=== PATIENT | male | born 1955 | race Caucasian/White ===

== ENCOUNTER 2016-07-05 17:55 | Emergency (ER) | payer MEDICARE, MEDICAID ==
[2016-07-05 18:24] VITALS: BP 103/64
--- NOTE | 2016-07-05 20:26 | ERNOTE ---
Time Seen by Provider: 07/05/16 20:11 Stated Complaint: CONGESTION, COUGH Presenting Symptoms:: cough, runny nose Source: patient, family Exam Limitations: no limitations Immunizations: IMMUNIZATION HX Immunizations Up to Date No Allergies/Adverse Reactions: Allergies Iodinated Contrast Media - IV Dye Allergy (Verified 07/05/16 18:23) Penicillins Allergy (Verified 07/05/16 18:23) Home Medications: HOME MEDICATIONS Aspirin 325 mg PO DAILY 07/24/13 [Last Taken Unknown] Atorvastatin Calcium 40 mg PO DAILY 07/24/13 [Last Taken Unknown] Clopidogrel 75 mg PO DAILY 07/24/13 [Last Taken Unknown] Acetaminophen [Tylenol] 1,000 mg PO BID 07/05/16 [Last Taken Unknown] Azithromycin [Zithromax] 250 mg PO DAILY #4 tablet 07/05/16 [Last Taken Unknown] Cephalexin 500 mg PO QID 07/05/16 [Last Taken Unknown] Levothyroxine Sodium [Synthroid] 25 mcg PO DAILY 07/05/16 [Last Taken Unknown] Lisinopril/Hydrochlorothiazide [Lisinopril-Hctz 20-12.5 mg Tab] 1 each PO DAILY 07/05/16 [Last Taken Unknown] Methylprednisolone [Medrol Dosepak] 4 mg PO DAILY #21 tab.ds.pk 07/05/16 [Last Taken Unknown] Neomycin/Polymyxin B Sulf/Hc [Ewmsyugv-Jrykpxbbx-Xn Ear Soln] 10 ml OT TID 07/05 [Last Taken Unknown] - History of Present Ilness Narrative: Pt states that he has been coughing for 3-4 days, getting worse Timing: getting worse Severity: moderate Frequency/Possible Cause: Reports: occasional episodes Modifying Factors - Worsens: Reports: coughing Associated Symptoms: Reports: wheezing Review of Systems - Review of Systems Constitutional: Present: recent illness. Absent: fever EYE: Present: no symptoms reported ENT: Present: other - lump in the anterior left neck Respiratory: Present: shortness of breath, cough Cardiology: Absent: chest pain Gastrointestinal/Abdominal: Absent: nausea, vomiting Genitourinary: Present: no symptoms reported Musculoskeletal: Present: no symptoms reported Skin: Present: no symptoms reported Neurological: Present: no symptoms reported Endocrine: Present: no symptoms reported Hematologic/Lymphatic: Present: no symptoms reported Psych: Present: no symptoms reported - Patient's Past Medical History Patient History - Medical: No pertinent hx Patient History - Cancer: Esophageal, Radiation Therapy, Other Patient History - Surgical Procedures: Other - Social History Living Situations: home Physical Exam - Physical Exam General Appearance: Present: wd/wn, alert, no apparent distress Eye Exam: Normal inspection: bilateral, PERRL: bilateral Ears, Nose, Throat: Present: nasal congestion, sinus pain/drainage, other - PND Neck: Present: nontender, supple, lymphadenopathy (L) - anterior left, single nodule, non-mobile approx 5 mm in diameter Respiratory: Present: rales - throughout Cardiovascular/Chest: Present: regular rate, rhythm Back Exam: Present: normal inspection, normal range of motion Extremity Exam: Present: normal inspection, non-tender, no edema Neurological Exam: Present: alert, oriented, normal mood/affect, no motor/ sensory deficits Skin Exam: Present: normal color, warm/dry ED Progress - Results and Orders Patient's Lab Results:: I have reviewed the patient's lab results. Results and Orders: Laboratory Tests 07/05/16 20:53 WBC 4.1 Hgb 14.0 Hct 41.6 L Plt Count 233 - Vital Signs Vital Signs: Vital Signs 07/05/16 18:18 Temperature 36.3 C L Pulse Rate 99 Respiratory 12 Rate Blood Pressure 103/64 O2 Sat by Pulse 97 Oximetry - X-Ray X-Ray #1 X-Ray: chest Interpretation: Reviewed by me X-ray Comments: right apical post-surgical changes, left apical nodule, seen previously. No acute changes - Progress/Reassessment Chief Complaint: Upper Respiratory Symptoms Departure - Departure Clinical Impression: Acute exacerbation of chronic obstructive bronchitis Disposition: Home Follow Up Needed Condition: Good Instructions: Chronic Obstructive Pulmonary Disease, [id number] Additional Instructions: Stop the current antibiotic, start new antibiotic and steroid pack. See your regular physician in 5-7 days Prescriptions: Azithromycin [Zithromax] 250 mg PO DAILY #4 tablet Methylprednisolone [Medrol Dosepak] 4 mg PO DAILY #21 tab.ds.pk
[2016-07-05 20:54] LABS: Hematocrit 41.6 % (42.0-52.0); Mean Cell Volume 90.8 fl (78-100); Mean Corpuscular Hemoglobin 30.6 pg (27-31); Mean Corpuscular Hgb Conc 33.7 g/dl (32-36); Mean Platelet Volume 9.6 fl (6.0-9.5); Neutrophil # 2.7 K/mm3 (1.3-6.0); Neutrophil % 66.7 % (42-75.0); Platelet Count 233 K/mm3 (150-450); Red Blood Count 4.58 M/mm3 (4.7-6.0); White Blood Count 4.1 K/mm3 (4.0-10.5)
[2016-07-05] MEDS ORDERED: AZITHROMYCIN 250 MG TABLET PO ONE (21:45)
[2016-07-05] MEDS ORDERED: AZITHROMYCIN 250 MG TABLET ONE (21:53)
== END 2016-07-05 22:00 | disposition home or self-care (01) ==
LOC: ER 17:55
DX: J44.1 Chronic obstructive pulmonary disease with (acute) exacerbation (principal); Z85.01 Personal history of malignant neoplasm of esophagus

== ENCOUNTER 2016-11-08 10:06 | Emergency (ER) | payer MEDICARE, MEDICAID ==
--- NOTE | 2016-11-08 10:22 | ERNOTE ---
Upper Extremity HPI - Narrative Date of Service: 11/08/16 - General Extremities Pain Location: elbow: right - fluid collection Time Seen by Provider: 11/08/16 10:12 Source: patient Exam Limitations: no limitations - Immun/Allergies/Home Medications Immunizations: IMMUNIZATION HX Immunizations Up to Date No History of Influenza Vaccine No Hx Pneumococcal Vaccination No Allergies/Adverse Reactions: Allergies Allergy/AdvReac Type Severity Reaction Status Date / Time Iodinated Contrast Media - Allergy Verified 11/08/16 10:16 Oral and [Iodinated Contrast Media - IV Dye] Penicillins Allergy Verified 11/08/16 10:16 Home Medications: HOME MEDICATIONS Atorvastatin Calcium [Lipitor] 40 mg PO HS 11/08/16 [Last Taken Unknown] Clopidogrel Bisulfate [Plavix] 75 mg PO DAILY 11/08/16 [Last Taken Unknown] Levothyroxine Sodium [Levoxyl] 25 mcg PO DAILY 11/08/16 [Last Taken Unknown] Lisinopril/Hydrochlorothiazide [Lisinopril-Hctz 20-12.5 mg Tab] 1 each PO DAILY 11/08/16 [Last Taken Unknown] - History of Present Illness Narrative: 61-year-old male presents to the emergency room for right elbow swelling. Patient states this is a 7 on 2 other occasions and he has seen Dr. boudreaux has strained this on [address] Boudreaux states that he did not want to reaspitate the elbow at this time. he would like him to see a orthopedist specialist. Patient came here to see if we would drain it and then he will go see the specialist later on in [place]. Date (Duration): 11/08/16 Occurred: last week Location of Incident: home Method of Injury: Reports: no apparent injury Loss of Consciousness: Reports: no loss of consciousness Associated Symptoms: Denies: tingling, weakness, numbness distally, loss of feeling, loss of power (rt arm) Other Injuries: Reports: none Prior Treament: Reports: treated by physician, similar symptoms before Review of Systems - Review of Systems Constitutional: Present: no symptoms reported EYE: Present: no symptoms reported ENT: Present: no symptoms reported Respiratory: Present: no symptoms reported Cardiology: Present: no symptoms reported Gastrointestinal/Abdominal: Present: no symptoms reported Genitourinary: Present: no symptoms reported Musculoskeletal: Present: See HPI, joint swelling Skin: Present: See HPI Neurological: Present: no symptoms reported Endocrine: Present: no symptoms reported Hematologic/Lymphatic: Present: no symptoms reported Psych: Present: no symptoms reported All Other Systems: All systems neg except as marked - Patient's Past Medical History Patient History - Medical: Hypothyroidism Patient History - Cardiac/Respiratory: COPD, CVA/Stroke, Hypertension, Hyperlipidemia Patient History - Cancer: Esophageal, Chemotherapy history, Radiation Therapy, Other Patient History - Surgical Procedures: Other Patient History - Other: None - Social History Living Situations: home Smoking Status: Former smoker Have you smoked in the past 12 months: No - Immunizations Immunizations Up to Date: No Hx Pneumococcal Vaccination: No History of Influenza Vaccine: No Physical Exam - Physical Exam Narrative: patient has a golfball size soft fluid filled area to his right elbow. area is not warm or red. No pain with manipulation to mass or ROM to elbow. General Appearance: Present: wd/wn, alert, no apparent distress Eye Exam: Normal inspection: bilateral Ears, Nose, Throat: Present: normal ENT inspection Neck: Present: normal inspection, nontender, full range of motion Respiratory: Present: no respiratory distress, normal breath sounds, no accessory muscle use, lungs clear Cardiovascular/Chest: Present: regular rate, rhythm, normal peripheral pulses Peripheral Pulses: N=norm/S=strong/W=weak/B=bound/A=absent: Dorsalis-pedis (R): Normal, Dorsalis-pedis (L): Normal Gastrointestinal/Abdominal: Present: normal bowel sounds, nontender, soft Back Exam: Present: normal inspection, normal range of motion, no vertebral tenderness Extremity Exam: Present: non-tender, normal range of motion Neurological Exam: Present: alert, oriented, normal mood/affect, no motor/ sensory deficits Skin Exam: Present: normal color, warm/dry Lymphatic Exam: Present: no adenopathy ED Progress - Vital Signs Patient's Vital Signs:: I have reviewed the patient's vital signs. Vital Signs: Vital Signs 11/08/16 10:12 Temperature 37.4 C Pulse Rate 87 Respiratory 14 Rate Blood Pressure 176/76 O2 Sat by Pulse 98 Oximetry patient states he has white coat syndrome and checks his BP regularly at home. states it is 130's over 70's. - Progress/Reassessment Chief Complaint: Upper Extremity Injury/Problem Progress:: Unchanged Plan - Plan Plan: patient has F/U apt with [facility] office November 13 2 pm. Departure Clinical Impression: Elbow effusion Qualifiers: Laterality: right Qualified Code(s): M25.421 - Effusion, right elbow - Departure Disposition: Home Follow Up Needed Condition: Stable Additional Instructions: [facility]. Continue any previous medications as directed. Return to the emergency room if side becomes red warm or more swollen. Referrals: Alex Boudreaux DO [Primary Care Provider] -
--- OUTSIDE RECORDS SUMMARY | 2016-11-08 10:27 | XMS REPORT | Continuity of Care Document ---
:1955 Author Organization [facility] ([facility]) Address [address] [place] [address] Phone [phone] Care Team Providers Name Role Phone Alex Cordon Primary Care Provider [phone] Source Comments This disclosure is being made pursuant to the Care Everywhere program, applicable federal and state laws, and may not contain all informaitonavailable regarding this patient.[facility] ([facility]) Active Allergies and Adverse Reactions Allergen Noted Date Severity Reactions Comments Iodinated Contrast Media 10/14/2013 Urticaria (Hives) - Oral And Iv Dye Iodine 07/14/2013 Urticaria (Hives) Penicillin G Angioedema Swelling of throat and eyes Current Medications Prescription Sig. Disp. Refills Start Date End Date Status aspirin 325 mg EC Take 1 Tab by mouth 60 Tab 11 07/19/2013 Active tablet daily. Indications: CEREBRAL THROMBOEMBOLISM PREVENTION ALPRAZolam 0.5 mg Take 0.5 mg by mouth Active tablet as needed. lisinopril-hydrochlor Take 1 tablet by Active othiazide 20-12.5 mg mouth daily . per tablet levothyroxine 25 mcg Take 1.5 tablets 45 tablet 12 08/27/2015 Active tablet (37.5 mcg total) by mouth every morning before breakfast. acetaminophen 500 mg Take 1,000 mg by Active tablet mouth 2 times daily. diphenhydrAMINE 50 mg Take 1 capsule (50 1 capsule 0 03/20/2016 Active capsule mg total) by mouth once. Take 1 hour prior to the procedure predniSONE 50 mg Take 50mg (1 tab) by 3 tablet 0 03/20/2016 Active tablet mouth 13 hours, 7 hours and 1 hour prior to the procedure. traMADol 50 mg tablet Take 50 mg by mouth 07/25/2016 Active 3 times daily as needed. clopidogrel (PLAVIX) Take 1 tablet (75 mg 30 tablet 11 09/15/2016 Active 75 mg tablet total) by mouth daily. atorvastatin 40 mg Take 1 tablet (40 mg 30 tablet 11 09/15/2016 Active tablet total) by mouth daily. Active Problems Problem Noted Date Carotid stenosis, bilateral 10/19/2016 Xerostomia 03/17/2015 Dysphagia 03/17/2015 Sialadenitis 03/17/2015 Hypothyroidism due to acquired atrophy of thyroid 03/17/2015 History of head and neck radiation 11/11/2014 History of antineoplastic chemotherapy 11/11/2014 Nasopharyngeal carcinoma 11/04/2014 Ocular ischemic syndrome 10/14/2013 Internal carotid artery occlusion 07/18/2013 Transient visual loss 07/18/2013 Vision loss of left eye 07/17/2013 Low BMI 07/16/2013 Weight loss 07/16/2013 Lung nodule 07/16/2013 Overview: PET enhancing, detected in 2011 at [facility] in [place]. Wedge resection vs endoscopic thoracotomy was recommended but patient was lost to follow up. 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 07/15/2013 Overview: left CCA occlusion w/ retrograde left ICA flow, 50% right ICA History of nasopharyngeal cancer 07/15/2013 Overview: 5 years ago treated with chemo/radiation Stroke 07/14/2013 Most Recent Encounters Date Type Specialty Providers Description 10/19/2016 Office Visit Neurology Evangelina Hernandez Dx: Stroke (Primary MD Dx) 10/16/2016 Office Visit Neurology Evangelina Hernandez, Chief Comp: Patient MD Reported Reason For Visit 09/19/2016 Telephone Otolaryngology Rosario Abad, Chief Comp: Discuss PA-C Test Results 09/18/2016 [facility], Chief Comp: Patient Encounter MD Timbo Reported Reason For Visit 09/18/2016 [facility] Radiology Sushant Lantigua Dx: Nasopharyngeal Encounter Vern Jurado MD carcinoma 09/18/2016 [facility] Radiology Ibrahima Lantigua MD Chief Comp: Patient Encounter Reported Reason For Visit 09/18/2016 Office Visit [facility] Constantin Dx: PVD (peripheral MD Timbo vascular disease) (Primary Dx) 09/15/2016 Office Visit Otolaryngology Alvaro Cazares Dx: Nasopharyngeal MD carcinoma (Primary Rosario Abad, Dx) PA-C 09/15/2016 Refill Neurology Evangelina Hernandez, Dx: Chronic arterial MD ischemic stroke (Primary Dx) 09/01/2016 Telephone Otolaryngology Aure Liriano Chief Comp: LOREN Espinal-sachin-nurse 09/01/2016 Telephone Otolaryngology Aure Liriano RN Social History Tobacco Use Types Packs/Day Years Used Date Former Smoker Cigarettes 2 38 Quit: 07/13/2013 Smokeless Tobacco: Never Used Tobacco Cessation:Counseling Given: Yes Comments: Alcohol Use Drinks/Week oz/Week Comments No Last Filed Vital Signs Vital Sign Reading Time Taken Blood Pressure 160/76 10/19/2016 9:46 AM CDT Pulse 74 10/19/2016 9:46 AM CDT Temperature 35.9 C (96.6 F) 09/18/2016 1:05 PM CDT Respiratory Rate 16 07/17/2013 8:00 AM TRANSFER KNITTER Height 1.791 m (5' 10.5") 10/19/2016 9:46 AM CDT Weight 62.3 kg (137 lb 5.6 oz) 10/19/2016 9:46 AM CDT Body Mass Index 19.42 10/19/2016 9:46 AM CDT Oxygen Saturation 100% 10/19/2016 9:46 AM CDT Plan of Care Date Type Specialty Providers Description 09/14/2017 Appointment Otolaryngology Ben Dumont MD [address] [place] [address] [phone] (Fax) Chief Comp: Patient Alvaro Cazares MD [address] [place] [address] [phone] (Fax) Reported Reason For Rosario Abad PA-C [address] [place] [address] [phone] (Fax) Visit 09/17/2017 Appointment Radiology Chief Comp: Patient Reported Reason For Visit 09/17/2017 Appointment Heart and Vascular Timbo Killian, Chief Comp: Patient Reported Reason For [address] [place] [address] [phone] (Fax) 09/17/2017 Appointment Srg Vascular Timbo Killian, Chief Comp: Patient Reported Reason For [address] [place] [address] [phone] (Fax) Health Maintenance Due Date Last Done Comments HCV Screening 1955 Hepatitis B Vaccine (1 of 3 - Primary Series) 1955 Tdap Vaccine 1966 Td Vaccine 1973 Pneumococcal Vaccine (1 of 3 - PCV13) 1974 Colonoscopy 06/22/2005 Prostate Cancer Screening 2005 Zoster Vaccine 2015 Influenza Vaccine: Seasonal (Season Ended) 2017 Lipid Disorder Screening 07/15/2018 07/15/2013 Procedures from Last 3 Months Procedure Name Priority Date/Time Associated Diagnosis Comments [place] REMOVE IMPACTED Routine 09/15/2016 1:04 Left ear impacted Results for this EAR WAX PM CDT cerumen procedure are in the results section. LARGSC FLX FIBOPT Routine 09/15/2016 1:04 Nasopharyngeal Results for this DX PM CDT carcinoma procedure are in the results section. Results from Last [address] LARYNX/SOFT TISSUE NECK W CONTRAST ([id number]) (09/18/2016 12:24 PM) Impressions Impression: 1. No evidence of local recurrence in pharyngeal area. 2. No cervical lymphadenopathy. 3. Stable chronic occlusion of proximal left common carotid artery with distal reconstitution by left external carotid artery. 4. Stable marked stenosis of left distal common carotid artery and left ICA. 5. Patent stent in right common carotid artery and right internal carotid artery, with stable mild in stent stenosis in distal right ICA. Narrative Procedure: CT ANGIO NECK W/WO CONTRAST ([id number]), CT LARYNX/SOFT TISSUE NECK W CONTRAST ([id number]) Indication: Evaluate right carotid stenosis s/p stent placement. 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 Exam: Axial CT angiogram of the neck after the uneventful administration of 49 mL Isovue-370 IV contrast. Sagittal and coronal reformations were also provided for review. 3D images were created on an independent workstation to better evaluate potential vascular abnormalities. Comparison: 09/20/2015. Findings: Neck: There is asymmetry of parotid glands with left parotid gland appears to be moderately small in size. There are multiple subcentimeter lymph nodes bilaterally which do not reach significance by size criteria. The nasopharyngeal, oropharyngeal, hypopharyngeal, and laryngeal structures are symmetric and within normal limits. Normal paranasal sinuses. The salivary glands are normal. Thyroid gland is homogenous without nodules. Cervical vascular structures patent. Postsurgical changes of right upper lobe wedge resection. No destructive bony lesions. Mild multilevel degenerative changes more so at C6-C7 level. Bilateral emphysematous changes in both upper lobes. CTA neck: Stent in right common carotid artery and right internal carotid artery. There is mild stenosis in distal common carotid artery, stable since prior. There is stable occlusion of left common carotid artery just distal to its origin up to carotid artery bulb. It is likely being constituted distally by left ECA. Stable marked stenosis of left common carotid artery distal to the bulb. It continues to be markedly stenotic in the left internal carotid artery distally up to cavernous segment. The vertebral arteries originate from the subclavian arteries without significant ostial stenosis. Left vertebral artery is dominant. There is normal course and caliber of the cervical vertebral arteries. Procedure Note Antoni, Incoming Imaging Results - SunSep 18, 2016 3:50 PM CDT Procedure: CT ANGIO NECK W/WO CONTRAST ([id number]), CT LARYNX/SOFT TISSUE NECK W CONTRAST ([id number]) Indication: Evaluate right carotid stenosis s/p stent placement. 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 Exam: Axial CT angiogram of the neck after the uneventful administration of 49 mL Isovue-370 IV contrast. Sagittal and coronal reformations were also provided for review. 3D images were created on an independent workstation to better evaluate potential vascular abnormalities. Comparison: 09/20/2015. Findings: Neck: There is asymmetry of parotid glands with left parotid gland appears to be moderately small in size. There are multiple subcentimeter lymph nodes bilaterally which do not reach significance by size criteria. The nasopharyngeal, oropharyngeal, hypopharyngeal, and laryngeal structures are symmetric and within normal limits. Normal paranasal sinuses. The salivary glands are normal. Thyroid gland is homogenous without nodules. Cervical vascular structures patent. Postsurgical changes of right upper lobe wedge resection. No destructive bony lesions. Mild multilevel degenerative changes more so at C6-C7 level. Bilateral emphysematous changes in both upper lobes. CTA neck: Stent in right common carotid artery and right internal carotid artery. There is mild stenosis in distal common carotid artery, stable since prior. There is stable occlusion of left common carotid artery just distal to its origin up to carotid artery bulb. It is likely being constituted distally by left ECA. Stable marked stenosis of left common carotid artery distal to the bulb. It continues to be markedly stenotic in the left internal carotid artery distally up to cavernous segment. The vertebral arteries originate from the subclavian arteries without significant ostial stenosis. Left vertebral artery is dominant. There is normal course and caliber of the cervical vertebral arteries. IMPRESSION Impression: 1. No evidence of local recurrence in pharyngeal area. 2. No cervical lymphadenopathy. 3. Stable chronic occlusion of proximal left common carotid artery with distal reconstitution by left external carotid artery. 4. Stable marked stenosis of left distal common carotid artery and left ICA. 5. Patent stent in right common carotid artery and right internal carotid artery, with stable mild in stent stenosis in distal right ICA. CT ANGIO NECK W/WO CONTRAST ([id number]) (09/18/2016 12:23 PM) Impressions Impression: 1. No evidence of local recurrence in pharyngeal area. 2. No cervical lymphadenopathy. 3. Stable chronic occlusion of proximal left common carotid artery with distal reconstitution by left external carotid artery. 4. Stable marked stenosis of left distal common carotid artery and left ICA. 5. Patent stent in right common carotid artery and right internal carotid artery, with stable mild in stent stenosis in distal right ICA. Narrative Procedure: CT ANGIO NECK W/WO CONTRAST ([id number]), CT LARYNX/SOFT TISSUE NECK W CONTRAST ([id number]) Indication: Evaluate right carotid stenosis s/p stent placement. 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 Exam: Axial CT angiogram of the neck after the uneventful administration of 49 mL Isovue-370 IV contrast. Sagittal and coronal reformations were also provided for review. 3D images were created on an independent workstation to better evaluate potential vascular abnormalities. Comparison: 09/20/2015. Findings: Neck: There is asymmetry of parotid glands with left parotid gland appears to be moderately small in size. There are multiple subcentimeter lymph nodes bilaterally which do not reach significance by size criteria. The nasopharyngeal, oropharyngeal, hypopharyngeal, and laryngeal structures are symmetric and within normal limits. Normal paranasal sinuses. The salivary glands are normal. Thyroid gland is homogenous without nodules. Cervical vascular structures patent. Postsurgical changes of right upper lobe wedge resection. No destructive bony lesions. Mild multilevel degenerative changes more so at C6-C7 level. Bilateral emphysematous changes in both upper lobes. CTA neck: Stent in right common carotid artery and right internal carotid artery. There is mild stenosis in distal common carotid artery, stable since prior. There is stable occlusion of left common carotid artery just distal to its origin up to carotid artery bulb. It is likely being constituted distally by left ECA. Stable marked stenosis of left common carotid artery distal to the bulb. It continues to be markedly stenotic in the left internal carotid artery distally up to cavernous segment. The vertebral arteries originate from the subclavian arteries without significant ostial stenosis. Left vertebral artery is dominant. There is normal course and caliber of the cervical vertebral arteries. Procedure Note Antoni, Incoming Imaging Results - SunSep 18, 2016 3:50 PM CDT Procedure: CT ANGIO NECK W/WO CONTRAST ([id number]), CT LARYNX/SOFT TISSUE NECK W CONTRAST ([id number]) Indication: Evaluate right carotid stenosis s/p stent placement. 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 Exam: Axial CT angiogram of the neck after the uneventful administration of 49 mL Isovue-370 IV contrast. Sagittal and coronal reformations were also provided for review. 3D images were created on an independent workstation to better evaluate potential vascular abnormalities. Comparison: 09/20/2015. Findings: Neck: There is asymmetry of parotid glands with left parotid gland appears to be moderately small in size. There are multiple subcentimeter lymph nodes bilaterally which do not reach significance by size criteria. The nasopharyngeal, oropharyngeal, hypopharyngeal, and laryngeal structures are symmetric and within normal limits. Normal paranasal sinuses. The salivary glands are normal. Thyroid gland is homogenous without nodules. Cervical vascular structures patent. Postsurgical changes of right upper lobe wedge resection. No destructive bony lesions. Mild multilevel degenerative changes more so at C6-C7 level. Bilateral emphysematous changes in both upper lobes. CTA neck: Stent in right common carotid artery and right internal carotid artery. There is mild stenosis in distal common carotid artery, stable since prior. There is stable occlusion of left common carotid artery just distal to its origin up to carotid artery bulb. It is likely being constituted distally by left ECA. Stable marked stenosis of left common carotid artery distal to the bulb. It continues to be markedly stenotic in the left internal carotid artery distally up to cavernous segment. The vertebral arteries originate from the subclavian arteries without significant ostial stenosis. Left vertebral artery is dominant. There is normal course and caliber of the cervical vertebral arteries. IMPRESSION Impression: 1. No evidence of local recurrence in pharyngeal area. 2. No cervical lymphadenopathy. 3. Stable chronic occlusion of proximal left common carotid artery with distal reconstitution by left external carotid artery. 4. Stable marked stenosis of left distal common carotid artery and left ICA. 5. Patent stent in right common carotid artery and right internal carotid artery, with stable mild in stent stenosis in distal right ICA. CREATININE (09/18/2016 10:57 AM) Component Value Range Creatinine 1.5(H)Comment: 0.6-1.2 mg/dL Creatinine switched to enzymatic method on 11/01/2010.GFR equation switched to IDMS-traceable MDRD equation on 11/01/2010. Calculated GFR values are not valid in clinical settings where serum creatinine is changing. Calculated GFR 48(L) >60 mL/min/1.73 m2 Specimen Blood CERUMEN IMPACTION REMOVAL (09/15/2016 1:04 PM) Narrative Rosario Abad PA-C 09/15/20161:04 PM Clinic Note Encounter Date: 09/15/2016 Subjective: Tyrone Liriano is a 61 y.o. 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 Pt had lung nodule that, per pt report, had a lung wedge resection. Established care at [facility] w Dr. Cazares on 11/03/13 and was referred to Survivorship Clinic. Last PET 2010 was negative for recurrent disease. OPMS 03/16/15 showed laryngeal penetration wo aspiration w large vallecular and piriform sinus stasis w thicker consistencies. TSH checked locally, now taking 25mcg Levothyroxine. Today pt reports some sore throat this morning but otherwise no throat pain. ear fullness and muffled hearing for last few months. Unable to remove cerumen locally w irrigations. Denies otalgia or otorrhea. New left neck swelling that he noticed and discussed w local PCP in 05/2016. Denies any increase/change in size since noticing it. Denies neck pain/discomfort.Some left facial fullness over left maxillary sinus/cheek. Denies facial pain or lesion. Some imbalance when moving from seated to standing position. Xerostomia same - drinks fluids. Edentulous - dentures fitting ok. Dysphagia due to dryness and dentures. Denies voice changes. 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] Low BMI [ALA2281] Weight loss [R63.4] Lung nodule [R91.1] Vision loss of left eye [H54.62] Internal carotid artery occlusion [I65.29] Transient visual loss [H53.129] Ocular ischemic syndrome [H35.82] Nasopharyngeal carcinoma [C11.9] History of head and neck radiation [Z92.3] History of antineoplastic chemotherapy [Z92.21] Xerostomia [K11.7] Dysphagia [R13.10] Sialadenitis [K11.20] Hypothyroidism due to acquired atrophy of thyroid [E03.4] Past Surgical History BIOPSY, [id number] [place] TCAT IV STENT CRV CRTD ART EMBOLIC PROTECJ Right 07/15/2013 Comment Procedure: CAROTID ARTERY ENDOVASCULAR STENTING; Surgeon: Timbo Killian MD;Location: MAIN OR;Service: Surgery-Vascular Family History Arthritis Mother Diabetes Father Stroke Father Diabetes Brother Arthritis Brother Current Outpatient Prescriptions: acetaminophen 500 mg tablet Take 1,000 mg by mouth 2 times daily. Disp:Rfl: ALPRAZolam 0.5 mg tablet Take 0.5 mg by mouth as needed. Disp: Rfl: aspirin 325 mg EC tablet Take 1 Tab by mouth daily. Indications: CEREBRAL THROMBOEMBOLISM PREVENTION Disp: 60 Tab Rfl: 11 atorvastatin 40 mg tablet Take 1 tablet (40 mg total) by mouth daily. Disp: 30 tablet Rfl: 11 clopidogrel (PLAVIX) 75 mg tablet Take 1 tablet (75 mg total) by mouth daily. Disp: 30 tablet Rfl: 11 diphenhydrAMINE 50 mg capsule Take 1 capsule (50 mg total) by mouth once. Take 1 hour prior to the procedure Disp: 1 capsule Rfl: 0 levothyroxine 25 mcg tablet Take 1.5 tablets (37.5 mcg total) by mouth every morning before breakfast. Disp: 45 tablet Rfl: 12 lisinopril-hydrochlorothiazide 20-12.5 mg per tablet Take 1 tablet by mouth daily . Disp:Rfl: predniSONE 50 mg tablet Take 50mg (1 tab) by mouth 13 hours, 7 hours and 1 hour prior to the procedure. Disp: 3 tablet Rfl: 0 traMADol 50 mg tabletDisp:Rfl: No current facility-administered medications for this visit. -- Iodinated Contrast Media - Oral And Iv Dye -- Urticaria (Hives) -- Iodine -- Urticaria (Hives) -- Penicillin G -- Angioedema --Swelling of throat and eyes Social History Marital Status: MarriedSpouse Name: N/A Years of Education: N/ANumber of Children: N/A Occupational History None on file Social History Main Topics Smoking status: Former Smoker2.00 Packs/DayFor 38.00 Years Types: Cigarettes Quit date: 07/13/2013 Smokeless tobacco: Never Used Alcohol Use: No Drug Use: No Sexual Activity: Not on file Not on file Other Topics Concern None on file Social History Narrative 04/07/2015 Neuro ophth health questionaire given. ZOYA/coa Review of Systems Review of Systems Constitutional: Negative for fever and chills. HENT: Positive for sore throat. Negative for ear pain. Respiratory: Negative for cough. Gastrointestinal: Negative for nausea. Musculoskeletal: Negative for neck pain. Neurological: Negative for speech change. Objective: BP 154/67 mmHg | Pulse 65 | Temp(Src) 35 C (95 F) | Ht 1.765 m (5' 9.49") | Wt 62.9 kg (138 lb 10.7 oz) | BMI 20.19 kg/m2 Appearance: thin Communication: normal Head/Face: inspection -normal palpation -normal Skin:normal Ocular Motility:normal Ears:auricle (AD) -normal EAC (AD) -normal TM mobility (AD) -normal auricle () -normal EAC () -Cerumen impaction, mild bleeding after removing cerumen w alligator forceps TM mobility () -TM intact mobile Nose:ext. inspection -normal int. inspection -normal Nasopharynx:radiation changes, post nasal drainage stuck on posterior nasopharynx midline, no mass Oral Cavity:lips -normal mucosa -normal Oropharynx:mucosa -normal Hypopharynx:normal Larynx:mucosa -normal TVF mobility -normal Neck:mass -New left superior/anterior level 2, hard to palpation, mobile, moves w pt speaking, superficial but not affixed to skin, 5mm Lymphatic:normal Cardiovascular:not assessed Respiratory:not assessed Neuro/Psych.:mood/affect -normal mental status -normal cranial nerves -normal Data Reviewed: old/outside records Procedure Performed: Laryngoscopy (flexible) Scope details: diagnostic Additional Procedure Detail: Verbal consent was obtained. The nasal cavity was prepped with an aerosolized solution of topical anesthetic and vasoconstrictive agent. Flexible fiberoptic laryngoscopy was performed to examine the nose, nasopharynx, oropharynx, larynx and hypopharynx. The scope was passed through the anterior nasal cavity and advanced. Inspection of the larynx revealed bilaterally mobile vocal cords. Post nasal drainage stuck on posterior nasopharynx wo mass or lesion. The airway is patent. Procedure tolerated well with no immediate complications noted. Supervision type: Indirect Cerumen impaction removal Additional Procedure Detail: Cerumen obstructing view of TM removed from left ear with suction and alligator forceps. Mild bleeding on anterior/deep EAC after cerumen removed w alligator forceps, stopped on own. TM intact mobile.Procedure tolerated well without immediate complications. Supervision type: Indirect Assessment: Encounter Diagnoses ICD-9-CM ICD-10-CM 1. Nasopharyngeal carcinoma 147.9 C11.9 2. Hypothyroidism due to acquired atrophy of thyroid 244.8 E03.4 246.8 3. Localized swelling, mass and lump, neck 784.2 R22.1 4. History of head and neck radiation V15.3 Z92.3 5. Internal carotid artery occlusion, left 433.10 I65.22 6. Left ear impacted cerumen 380.4 H61.22 61yo male now almost 8y out from last oncologic tx for SCC nasopharynx w new left neck mass and cerumen impaction Cerumen - mineral oil few drops once a week, may need cerumen removed q6-12mo TSH - f/b local PCP Survivorship Care Plan given to patient. At least 30min spent discussing care plan, cancer surveillance, and treatment side effects. Head and Neck Cancer Survivorship Resources Handout and Head and Neck Cancer Survivorship Support Services Brochure discussed with and given to patient. Plan: Return Date: [address]y [address] Add CT neck/larynx to Sunday's CTA. Call pt w results. Staff Physician Comments Staff Involved PA/CANNONEER/PNP/KEY ACCOUNT REPRESENTATIVE/NM as primary Rosario Abad PA-C LARYNGOSCOPY (09/15/2016 1:04 PM) Narrative Rosario Abad PA-C 09/15/20161:04 PM Clinic Note Encounter Date: 09/15/2016 Subjective: Tyrone Liriano is a 61 y.o. 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 Pt had lung nodule that, per pt report, had a lung wedge resection. Established care at [facility] w Dr. Cazares on 11/03/13 and was referred to [facility]orship [facility]. Last PET 2010 was negative for recurrent disease. OPMS 03/16/15 showed laryngeal penetration wo aspiration w large vallecular and piriform sinus stasis w thicker consistencies. TSH checked locally, now taking 25mcg Levothyroxine. Today pt reports some sore throat this morning but otherwise no throat pain. ear fullness and muffled hearing for last few months. Unable to remove cerumen locally w irrigations. Denies otalgia or otorrhea. New left neck swelling that he noticed and discussed w local PCP in 05/2016. Denies any increase/change in size since noticing it. Denies neck pain/discomfort.Some left facial fullness over left maxillary sinus/cheek. Denies facial pain or lesion. Some imbalance when moving from seated to standing position. Xerostomia same - drinks fluids. Edentulous - dentures fitting ok. Dysphagia due to dryness and dentures. Denies voice changes. 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] History of head and neck radiation [Z92.3] History of antineoplastic chemotherapy [Z92.21] Xerostomia [K11.7] Dysphagia [R13.10] Sialadenitis [K11.20] Hypothyroidism due to acquired atrophy of thyroid [E03.4] Past Surgical History BIOPSY, [id number] [place] TCAT IV STENT CRV CRTD ART EMBOLIC PROTECJ Right 07/15/2013 Comment Procedure: CAROTID ARTERY ENDOVASCULAR STENTING; Surgeon: Timbo Killian MD;Location: MAIN OR;Service: Surgery-Vascular Family History Arthritis Mother Diabetes Father Stroke Father Diabetes Brother Arthritis Brother Current Outpatient Prescriptions: acetaminophen 500 mg tablet Take 1,000 mg by mouth 2 times daily. Disp:Rfl: ALPRAZolam 0.5 mg tablet Take 0.5 mg by mouth as needed. Disp: Rfl: aspirin 325 mg EC tablet Take 1 Tab by mouth daily. Indications: CEREBRAL THROMBOEMBOLISM PREVENTION Disp: 60 Tab Rfl: 11 atorvastatin 40 mg tablet Take 1 tablet (40 mg total) by mouth daily. Disp: 30 tablet Rfl: 11 clopidogrel (PLAVIX) 75 mg tablet Take 1 tablet (75 mg total) by mouth daily. Disp: 30 tablet Rfl: 11 diphenhydrAMINE 50 mg capsule Take 1 capsule (50 mg total) by mouth once. Take 1 hour prior to the procedure Disp: 1 capsule Rfl: 0 levothyroxine 25 mcg tablet Take 1.5 tablets (37.5 mcg total) by mouth every morning before breakfast. Disp: 45 tablet Rfl: 12 lisinopril-hydrochlorothiazide 20-12.5 mg per tablet Take 1 tablet by mouth daily . Disp:Rfl: predniSONE 50 mg tablet Take 50mg (1 tab) by mouth 13 hours, 7 hours and 1 hour prior to the procedure. Disp: 3 tablet Rfl: 0 traMADol 50 mg tabletDisp:Rfl: No current facility-administered medications for this visit. -- Iodinated Contrast Media - Oral And Iv Dye -- Urticaria (Hives) -- Iodine -- Urticaria (Hives) -- Penicillin G -- Angioedema --Swelling of throat and eyes Social History Marital Status: MarriedSpouse Name: N/A Years of Education: N/ANumber of Children: N/A Occupational History None on file Social History Main Topics Smoking status: Former Smoker2.00 Packs/DayFor 38.00 Years Types: Cigarettes Quit date: 07/13/2013 Smokeless tobacco: Never Used Alcohol Use: No Drug Use: No Sexual Activity: Not on file Not on file Other Topics Concern None on file Social History Narrative 04/07/2015 Neuro ophth health questionaire given. ZOYA/coa Review of Systems Review of Systems Constitutional: Negative for fever and chills. HENT: Positive for sore throat. Negative for ear pain. Respiratory: Negative for cough. Gastrointestinal: Negative for nausea. Musculoskeletal: Negative for neck pain. Neurological: Negative for speech change. Objective: BP 154/67 mmHg | Pulse 65 | Temp(Src) 35 C (95 F) | Ht 1.765 m (5' 9.49") | Wt 62.9 kg (138 lb 10.7 oz) | BMI 20.19 kg/m2 Appearance: thin Communication: normal Head/Face: inspection -normal palpation -normal Skin:normal Ocular Motility:normal Ears:auricle (AD) -normal EAC (AD) -normal TM mobility (AD) -normal auricle () -normal EAC () -Cerumen impaction, mild bleeding after removing cerumen w alligator forceps TM mobility () -TM intact mobile Nose:ext. inspection -normal int. inspection -normal Nasopharynx:radiation changes, post nasal drainage stuck on posterior nasopharynx midline, no mass Oral Cavity:lips -normal mucosa -normal Oropharynx:mucosa -normal Hypopharynx:normal Larynx:mucosa -normal TVF mobility -normal Neck:mass -New left superior/anterior level 2, hard to palpation, mobile, moves w pt speaking, superficial but not affixed to skin, 5mm Lymphatic:normal Cardiovascular:not assessed Respiratory:not assessed Neuro/Psych.:mood/affect -normal mental status -normal cranial nerves -normal Data Reviewed: old/outside records Procedure Performed: Laryngoscopy (flexible) Scope details: diagnostic Additional Procedure Detail: Verbal consent was obtained. The nasal cavity was prepped with an aerosolized solution of topical anesthetic and vasoconstrictive agent. Flexible fiberoptic laryngoscopy was performed to examine the nose, nasopharynx, oropharynx, larynx and hypopharynx. The scope was passed through the anterior nasal cavity and advanced. Inspection of the larynx revealed bilaterally mobile vocal cords. Post nasal drainage stuck on posterior nasopharynx wo mass or lesion. The airway is patent. Procedure tolerated well with no immediate complications noted. Supervision type: Indirect Cerumen impaction removal Additional Procedure Detail: Cerumen obstructing view of TM removed from left ear with suction and alligator forceps. Mild bleeding on anterior/deep EAC after cerumen removed w alligator forceps, stopped on own. TM intact mobile.Procedure tolerated well without immediate complications. Supervision type: Indirect Assessment: Encounter Diagnoses ICD-9-CM ICD-10-CM 1. Nasopharyngeal carcinoma 147.9 C11.9 2. Hypothyroidism due to acquired atrophy of thyroid 244.8 E03.4 246.8 3. Localized swelling, mass and lump, neck 784.2 R22.1 4. History of head and neck radiation V15.3 Z92.3 5. Internal carotid artery occlusion, left 433.10 I65.22 6. Left ear impacted cerumen 380.4 H61.22 61yo male now almost 8y out from last oncologic tx for SCC nasopharynx w new left neck mass and cerumen impaction Cerumen - mineral oil few drops once a week, may need cerumen removed q6-12mo TSH - f/b local PCP Survivorship Care Plan given to patient. At least 30min spent discussing care plan, cancer surveillance, and treatment side effects. Head and Neck Cancer Survivorship Resources Handout and Head and Neck Cancer Survivorship Support Services Brochure discussed with and given to patient. Plan: Return Date: 1y [address] Add CT neck/larynx to Sunday's CTA. Call pt w results. Staff Physician Comments Staff Involved UNIQUE/BEBA/CESAR/DANILO/IVA as primary Rosario Abad PA-C
[2016-11-08 10:49] VITALS: BP 157/72
== END 2016-11-08 10:46 | disposition home or self-care (01) ==
LOC: ER 10:06
DX: M25.421 Effusion, right elbow (principal); Z87.891 Personal history of nicotine dependence; E03.9 Hypothyroidism, unspecified; I10 Essential (primary) hypertension; E78.5 Hyperlipidemia, unspecified; I63.9 Cerebral infarction, unspecified; Z85.01 Personal history of malignant neoplasm of esophagus; Z92.21 Personal history of antineoplastic chemotherapy; Z92.3 Personal history of irradiation

== ENCOUNTER 2017-01-06 17:11 | Emergency (ER) | payer MEDICARE, MEDICAID ==
[2017-01-06] MEDS ORDERED: DIPHTH,PERTUSS(ACELL),TET VAC 0.5 ML VIAL IM ONE ×2 (17:28→17:36)
--- NOTE | 2017-01-06 17:34 | ERNOTE ---
Integumentary HPI - Narrative Date of Service: 01/06/17 - General Presenting Symptoms: insect bite Time Seen by Provider: 01/06/17 17:19 Source: patient Exam Limitations: no limitations - Immun/Allergies/Home Medications Immunizations: IMMUNIZATION HX Immunizations Up to Date Yes History of Influenza Vaccine No Hx Pneumococcal Vaccination No Allergies/Adverse Reactions: Allergies Allergy/AdvReac Type Severity Reaction Status Date / Time Iodinated Contrast Media - Allergy Verified 01/06/17 17:18 Oral and [Iodinated Contrast Media - IV Dye] Penicillins Allergy Verified 01/06/17 17:18 Home Medications: HOME MEDICATIONS Atorvastatin Calcium [Lipitor] 40 mg PO HS 11/08/16 [Last Taken Unknown] Clopidogrel Bisulfate [Plavix] 75 mg PO DAILY 11/08/16 [Last Taken Unknown] Levothyroxine Sodium [Levoxyl] 25 mcg PO DAILY 11/08/16 [Last Taken Unknown] Lisinopril/Hydrochlorothiazide [Lisinopril-Hctz 20-12.5 mg Tab] 1 each PO DAILY 11/08/16 [Last Taken Unknown] Cephalexin Monohydrate [Keflex] 500 mg PO QID #20 cap 01/06/17 [Last Taken Unknown] - Pain Pain Score: 1 - History of Present Illness Narrative: Sandal. Insect sting between first and second toe this morning while mowing. Applied baking soda paste. Now swollen. Slightly painful. Quality: Reports: painful Severity: mild Exposure: Reports: bee/wasp sting Modifying Factors - (Improves): Reports: other - paste of soda Associated Symptoms: Reports: other - none Prior Treatment: Reports: other - baking soda paste Review of Systems - Review of Systems Constitutional: Present: no symptoms reported EYE: Present: no symptoms reported ENT: Present: no symptoms reported Respiratory: Present: no symptoms reported Cardiology: Present: no symptoms reported Gastrointestinal/Abdominal: Present: no symptoms reported Genitourinary: Present: no symptoms reported Musculoskeletal: Present: no symptoms reported Skin: Present: See HPI Neurological: Present: no symptoms reported Endocrine: Present: no symptoms reported Hematologic/Lymphatic: Present: no symptoms reported Psych: Present: no symptoms reported All Other Systems: All systems neg except as marked - Patient's Past Medical History Patient History - Medical: Hypothyroidism Patient History - Cardiac/Respiratory: COPD, CVA/Stroke, Hypertension, Hyperlipidemia Patient History - Cancer: Esophageal, Chemotherapy history, Radiation Therapy, Other Patient History - Surgical Procedures: Other Patient History - Other: None - Social History Living Situations: home Psych History: No pertinent hx Smoking Status: Former smoker - Immunizations Immunizations Up to Date: Yes Hx Pneumococcal Vaccination: No History of Influenza Vaccine: No Physical Exam - Physical Exam General Appearance: Present: wd/wn, alert, no apparent distress Head Exam: Present: normal inspection, no evidence of injury Eye Exam: Normal inspection: bilateral, PERRL: bilateral, EOMI: bilateral Ears, Nose, Throat: Present: normal ENT inspection Neck: Present: normal inspection, nontender Respiratory: Present: no respiratory distress Cardiovascular/Chest: Present: regular rate, rhythm Extremity Exam: Present: normal except - - slight swelling redness tenderness between great and second toe left foot. Neurological Exam: Present: alert, oriented, normal mood/affect Skin Exam: Present: normal color, warm/dry ED Progress - Vital Signs Patient's Vital Signs:: I have reviewed the patient's vital signs. Vital Signs: Vital Signs 01/06/17 17:13 Temperature 36.4 C L Pulse Rate 84 Respiratory 16 Rate Blood Pressure 104/65 O2 Sat by Pulse 97 Oximetry - Progress/Reassessment Chief Complaint: Insect Bite Departure Clinical Impression: Insect sting Qualifiers: Encounter type: initial encounter Injury intent: accidental or unintentional Qualified Code(s): T63.481A - Toxic effect of venom of other arthropod, accidental (unintentional), initial encounter Cellulitis Qualifiers: Site of cellulitis: extremity Site of cellulitis of extremity: toe - Departure Disposition: Home self-care Condition: Good Instructions: Cellulitis, Adult, [id number] Additional Instructions: see your doctor next week. Prescriptions: Cephalexin Monohydrate [Keflex] 500 mg PO QID #20 cap
[2017-01-06 19:13] VITALS: BP 112/81
== END 2017-01-06 18:10 | disposition home or self-care (01) ==
LOC: ER 17:11
DX: L03.032 Cellulitis of left toe (principal); T63.481A Toxic effect of venom of other arthropod, accidental (unintentional), initial encounter; E03.9 Hypothyroidism, unspecified; E78.5 Hyperlipidemia, unspecified; I10 Essential (primary) hypertension; Z85.01 Personal history of malignant neoplasm of esophagus; Z92.21 Personal history of antineoplastic chemotherapy; Z92.3 Personal history of irradiation; I63.9 Cerebral infarction, unspecified; Z87.891 Personal history of nicotine dependence; Z23 Encounter for immunization